=== PATIENT | male | born 1980 | race Caucasian/White ===

== ENCOUNTER 2025-04-25 06:58 | Emergency (ER) | payer OTHER, SELFPAY ==
[2025-04-25 07:02] VITALS: BP 110/72; BMI 25.4
[2025-04-25 07:04] VITALS: BP 110/72
--- NOTE | 2025-04-25 07:14 | ED.GENMED ---
History of Present Illness
<Laverne Carter MD, Resident - Last Filed: 04/25/25 14:28>
General
Chief Complaint: Seizure
Source: patient and ambulance crew
Time Seen by Provider: 04/25/25 06:59
History of Present Illness
History of Present Illness:
44 old male with past medical history of substance use disorder presents from presented with seizure. This morning around 05:42, patient's roommate called the guards because he was seizing. Patient does not recall the event at all. He was told
after the fact he had a seizure. He denies any prior seizure in the past. He denies any prior stroke or brain injury. He has been in jail for the past month on methadone with no recent alcohol or drug use. He endorses tongue biting and urinary
incontinence during the seizure. He currently has a headache however denies any runny nose, sore throat, cough, shortness of breath, fever, chills, neck pain, abdominal pain, nausea, vomiting, diarrhea, numbness or tingling elsewhere, weakness.
Past History
<Laverne Carter MD, Resident - Last Filed: 04/25/25 14:28>
Past History
ED Past Medical History: Other (Substance use disorder )
ED Past Surgical History: None
Social History
Tobacco: Former smoker (Started age 14 - age 44 - stopped when incarcerated last month )
Alcohol: Former (None in last month )
Drug: Former user (none in last month. Denies IV drug use. Previously snorted. )
Living: jail
Family History
Family History: Other
Review of Systems
<Laverne Carter MD, Resident - Last Filed: 04/25/25 14:28>
Review of Systems
Allergies reviewed?: Yes
Constitutional: Reports no symptoms
EENT: Reports no symptoms
Respiratory: Reports no symptoms
Cardiac: Reports no symptoms
ABD/GI: Reports no symptoms
: Reports no symptoms
Musculoskeletal: Reports no symptoms
Skin: Reports no symptoms
Neurological: Reports headache
Endocrine: Reports no symptoms
Hematologic/Lymphatic: Reports no symptoms
Psychiatric: Reports no symptoms
Phy Exam
<Laverne Carter MD, Resident - Last Filed: 04/25/25 14:28>
Physical Exam
Physical Exam:
General: Well-appearing, looking around, conversant
Head: Atraumatic
Neck: Nontender
Eyes: Right eye appears more posteriorly set than left, however patient states that is chronic. PERRLA and full range of motion
ENT: Poor dentition, left sided small tongue laceration, blood present on black
Cardiac: Regular S1, S2, no murmurs
Respiratory: End expiratory wheezing present
Abdomen: Soft, non-tender, non-distended, normal bowel sounds
Neurological: CN II-XII intact, bilateral upper and lower muscle strength 5/5, NIH 0
Extremities: No peripheral edema
Course
<Laverne Carter MD, Resident - Last Filed: 04/25/25 14:28>
Orders/Labs/Results
Orders:
Orders
04/25/25 07:13
CT Head W/o Iv Contrast Urgent
Comment:
Reason For Exam: Seizure
04/25/25 07:15
Alcohol Urgent
CMP [Comprehensive Metabolic Panel] Urgent
Complete Blood Count/With Diff Urgent
Fentanyl, Urine Urgent
Salicylate Urgent
Tylenol [Acetaminophen] Urgent
Urine Drug Abuse Screen Urgent
Date Specimen was Collected: 04/25/25
Time Specimen was Collected: 07:14
04/25/25 08:00
Methadone HCl [Methadone 100 mg/10 ml] 195 mg PO DAILY
04/25/25 09:02
Acetaminophen [Tylenol] 1,000 mg PO NOW STA
04/25/25 09:42
Levetiracetam [Keppra] 1,500 mg PO NOW STA
Abnormal Lab Results
04/25/25
07:15
RBC 4.17 L 10^6/uL
(4.70-6.10)
Hgb 12.8 L g/dL
(13.0-18.0)
Hct 37.5 L %
(39.0-52.0)
Absolute Lymphs (auto) 0.8 L 10^3/uL
(1.2-3.4)
Neutrophils % 76.5 H %
(42.2-75.2)
Lymphocytes % 17.2 L %
(20.5-51.1)
Sodium 134 L mmol/L
(135-145)
Glucose 117 H mg/dl
(70-99)
Salicylates < 1.0 L mg/dl
(2.0-20.0)
Urine Methadone Screen Positive H
(Negative)
Acetaminophen < 10 L ug/ml
(10-30)
04/25/25 07:15
04/25/25 07:15
Vital Signs
Initial and Last Documented VS:
Initial Vital Signs
Temp Pulse Resp BP Pulse Ox
98.2 F 86 18 110/72 95
04/25/25 07:02 04/25/25 07:02 04/25/25 07:02 04/25/25 07:02 04/25/25 07:02
Last Documented Vital Signs
Temp Pulse Resp BP Pulse Ox
98.2 F 76 13 100/55 97
04/25/25 07:02 04/25/25 09:15 04/25/25 09:15 04/25/25 10:00 04/25/25 10:00
<Helena Arambula MD - Last Filed: 04/25/25 09:39>
Orders/Labs/Results
Orders:
Orders
04/25/25 07:13
CT Head W/o Iv Contrast Urgent
Comment:
Reason For Exam: Seizure
04/25/25 07:15
Alcohol Urgent
CMP [Comprehensive Metabolic Panel] Urgent
Complete Blood Count/With Diff Urgent
Fentanyl, Urine Urgent
Salicylate Urgent
Tylenol [Acetaminophen] Urgent
Urine Drug Abuse Screen Urgent
Date Specimen was Collected: 04/25/25
Time Specimen was Collected: 07:14
04/25/25 08:00
Methadone HCl [Methadone 100 mg/10 ml] 195 mg PO DAILY
04/25/25 09:02
Acetaminophen [Tylenol] 1,000 mg PO NOW STA
04/25/25 09:42
Levetiracetam [Keppra] 1,500 mg PO NOW STA
Abnormal Lab Results
04/25/25
07:15
RBC 4.17 L 10^6/uL
(4.70-6.10)
Hgb 12.8 L g/dL
(13.0-18.0)
Hct 37.5 L %
(39.0-52.0)
Absolute Lymphs (auto) 0.8 L 10^3/uL
(1.2-3.4)
Neutrophils % 76.5 H %
(42.2-75.2)
Lymphocytes % 17.2 L %
(20.5-51.1)
Sodium 134 L mmol/L
(135-145)
Glucose 117 H mg/dl
(70-99)
Salicylates < 1.0 L mg/dl
(2.0-20.0)
Urine Methadone Screen Positive H
(Negative)
Acetaminophen < 10 L ug/ml
(10-30)
04/25/25 07:15
04/25/25 07:15
Vital Signs
Initial and Last Documented VS:
Initial Vital Signs
Temp Pulse Resp BP Pulse Ox
98.2 F 86 18 110/72 95
04/25/25 07:02 04/25/25 07:02 04/25/25 07:02 04/25/25 07:02 04/25/25 07:02
Last Documented Vital Signs
Temp Pulse Resp BP Pulse Ox
98.2 F 76 13 100/55 97
04/25/25 07:02 04/25/25 09:15 04/25/25 09:15 04/25/25 10:00 04/25/25 10:00
<Laverne Carter MD, Resident - Last Filed: 04/25/25 14:28>
MDM/Problems Addressed
Differential Diagnosis Includes:
syncopal episode, brain mass, alcohol withdrawal, drug abuse, new onset seizure disorder, endocarditis with vegetation to brain, traumatic brain injury sequela, electrolyte abnormality
MDM/Problems Addressed:
This is a 44-year-old male presenting with new onset seizure. He denies any prior seizure. Will get CBC, CMP, UDS, alcohol level, salicylate, Tylenol, Noncon head CT to evaluate for electrolyte abnormalities, brain mass, drug use, alcohol level.
Will monitor in the ER for started having a seizure. Considering his postictal state, tongue bite and urinary incontinence, highly probable this is a seizure rather than other event (syncopal episode).
CBC, CMP, head CT, UDS, and alcohol level all unremarkable. Discussed with neurology and they recommended a loading dose of keppra in the ER and to follow with 750mg BID. Will discharge patient with instructions to follow up with neurology for
further evaluation of seizures and keppra prescription.
<Helena Arambula MD - Last Filed: 04/25/25 09:39>
MDM/Problems Addressed
Chronic conditions affecting care:
Opioid dependence
Acute Exacerbation and/or Progression of Chronic Illness:
Patient is currently on methadone and there is no sign of acute withdrawal from opioid
<Laverne Carter MD, Resident - Last Filed: 04/25/25 14:28>
*Pulse Oximetry
SaO2: 99
Oxygen Mode of Delivery: Room air
Patient hypoxic: no
*Critical Care Note
Total Time (30-74mins, 75-104mins- exclusive of procedures): Not Applicable
<Helena Arambula MD - Last Filed: 04/25/25 09:39>
*Radiology
Radiology exam reviewed: radiology read reviewed
*Parking Line Painter Interpretation
Rate: normal
Interpretation: normal
Rhythm: sinus
Data Reviewed
Source: patient, ambulance crew and other
<Helena Arambula MD - Last Filed: 04/25/25 09:39>
Patient Management
Social determinants of health affecting care: Living situation and Strong social support
ED Attending Note
<Laverne Carter MD, Resident - Last Filed: 04/25/25 14:28>
-
Portions of this chart may have been created with voice recognition software.� Occasional wrong word or��sound alike� substitutions may have occurred due to the inherent limitations of voice recognition software.
<Helena Arambula MD - Last Filed: 04/25/25 09:39>
ED Attending Note
Patient seen and examined by attending physician: Yes
I performed a history and physical exam of patient and discussed management with resident, I reviewed resident's note and agree with documented findings and plan of care.: Yes
ED Attending Note:
Patient is fully awake, alert and speaking. Patient's heart sounds regular lungs are clear.
Discharge Plan
Departure
Patient Disposition: [facility]
Date of Disposition: 04/25/25
Time of Disposition: 09:48
Discharge Problem:
Seizure disorder
Instructions: Seizures, Adult (DC)
Prescriptions:
New
levetiracetam [Keppra] 750 mg tablet
750 mg PO BID 30 Days Qty: 60 0RF
No Action
methadone [Methadone Intensol] 10 mg/mL Concentrate
195 mg PO DAILY
Referrals:
[facility] [Family Provider, General]
Activity Restrictions/Additional Instructions:
Please follow up with neurology for additional medication management.
Interventions
Interventions:
*Risk Screen - Suicide Last Done: 04/25/25 07:02
*General Assessment Last Done: 04/25/25 07:02
*Neglect/Abuse Screening Last Done: 04/25/25 07:02
*ED- Fall Risk Assessment Last Done: 04/25/25 07:02
*ED COVID-19 Vaccine History Last Done: 04/25/25 07:02
*ED Influenza Vaccine History Last Done: 04/25/25 07:02
*Nursing Disposition Last Done: 04/25/25 10:21
ED- Cardiac Assessment Last Done: 04/25/25 07:02
ED- Neurological Assessment Last Done: 04/25/25 07:02
ED- Pulmonary Assessment Last Done: 04/25/25 07:02
Discharge Date and Time
Discharge Date/Time: 04/25/25 10:23
Print Language: DUTCH
[2025-04-25 07:32] LABS: Hematocrit 37.5 % (39.0-52.0); Hemoglobin 12.8 g/dL (13.0-18.0); Mean Corp Hgb Conc. 34.1 g/dL (33.0-37.0); Mean Corpuscular Volume 89.9 fL (80.0-94.0); Nucleated Red Blood Cells % 0 % (-); Platelet Count 241 10^3/uL (130-400); Red Cell Dist. Width 12.2 % (11.5-14.5)
[2025-04-25] MEDS: METHADONE 100 MG/10 ML 195 MG PO (07:35)
[2025-04-25 07:55] LABS: ALT (SGPT) 23 U/L (0-50); AST (SGOT) 28 U/L (17-59); Acetaminophen < 10 ug/ml (10-30); Albumin 4.7 g/dl (3.5-5.0); Alkaline Phosphatase 71 U/L (38-126); Blood Urea Nitrogen 18 mg/dl (9-20); Calcium 9.7 mg/dl (8.4-10.2); Carbon Dioxide 26 mmol/L (22-30); Chloride 103 mmol/L (98-107); Estimated Creatinine Clearance 104 ml/min; Glucose 117 mg/dl (70-99); Potassium 4.6 mmol/L (3.5-5.1); Salicylate < 1.0 mg/dl (2.0-20.0); Sodium 134 mmol/L (135-145); Total Protein 8.0 g/dl (6.3-8.2); eGFR > 60.00
[2025-04-25 09:00] VITALS: BP 102/70
[2025-04-25] MEDS: TYLENOL 1000 MG PO (09:26)
[2025-04-25 10:00] VITALS: BP 100/55
[2025-04-25] MEDS: KEPPRA 1500 MG PO (10:14)
== END 2025-04-25 10:23 ==
LOC: EMR 06:58
PROVIDERS: EMERGENCY PHYSICIAN Emergency Medicine
DX: G40.909 Epilepsy, unspecified, not intractable, without status epilepticus (principal); F11.20 Opioid dependence, uncomplicated; Z87.891 Personal history of nicotine dependence
CPT/HCPCS: 99284; 70450; 80053; 80143; 80179; 80306; 80307; 82077; 85025